=== PATIENT | female | born 1995 | race Caucasian/White ===

== ENCOUNTER 2023-04-03 21:56 | Emergency (ER) | payer BC ==
[~2023-04-03] VITALS: Ht 170.2 cm; Wt 68.0 kg
[2023-04-03 22:23] LABS: BILIRUBIN,URINE NEGATIVE (NEGATIVE); CLARITY,URINE CLEAR; COLOR,URINE YELLOW; GLUCOSE, URINE (UA) NEGATIVE (NEGATIVE); KETONES,URINE NEGATIVE (NEGATIVE); LEUKOCYTE ESTERASE ,URINE NEGATIVE (NEGATIVE); NITRITE,URINE NEGATIVE (NEGATIVE); PROTEIN,URINE NEGATIVE (NEGATIVE)
[2023-04-03 22:44] LABS: BASOPHILS % (AUTO) 0 % (0-10); EOSINOPHILS # (AUTO) 0.1 10^3/uL (0.0-0.3); EOSINOPHILS % (AUTO) 2 % (0-10); HEMATOCRIT 40 % (35-52); HEMOGLOBIN 13.8 g/dL (11.5-16.0); LYMPHOCYTES # (AUTO) 2.9 10^3/uL (1.0-4.0); LYMPHOCYTES % (AUTO) 38 % (12-44); MEAN CORPUSCULAR HEMOGLOBIN 30 pg (25-34); MEAN CORPUSCULAR HGB CONC 35 g/dL (32-36); MEAN CORPUSCULAR VOLUME 88 fL (80-99); MEAN PLATELET VOLUME 9.9 fL (9.0-12.2); MONOCYTES # (AUTO) 0.6 10^3/uL (0.0-1.0); MONOCYTES % (AUTO) 7 % (0-12); NEUTROPHILS % (AUTO) 53 % (42-75); PLATELET COUNT 312 10^3/uL (130-400); WHITE BLOOD COUNT 7.6 10^3/uL (4.3-11.0)
[2023-04-03 22:52] LABS: AMORPHOUS SEDIMENT,UR FEW AMOR URATES /LPF; BACTERIA,URINE MODERATE /HPF; RBC,URINE RARE /HPF; WBC,URINE RARE /HPF
--- NOTE | 2023-04-04 00:43 | ED GU-Female ---
General Chief Complaint: OB < 20 WEEKS Stated Complaint: 5-6 WKS - BLEEDING/CRAMPING Nursing Triage Note: PT AMB TO ED BY POV WITH C/O VAGINAL BLEEDING. PT REPORTS SHE IS 5-6 WKS AND BEGAN HAVING ABD CRAMPING AND VAGINAL BLEEDING AROUND 1945 THIS EVENING. DENIES CRAMPING AT THIS TIME. Source: patient Exam Limitations: no limitations History of Present Illness Date Seen by Provider: Apr 03, 2023 Time Seen by Provider: 22:07 Allergies and Home Medications Allergies Coded Allergies: No Known Drug Allergies (Unverified , 04/03/23) Past Crajfce-Cujzhc-Xokjtc Hx Patient Social History Tobacco Use?: No Use of E-Cig and/or Vaping dev: No Substance use?: No Alcohol Use?: No Pt feels they are or have been: No Immunizations Up To Date Influenza Vaccine Up-to-Date: Yes; Up-to-Date First/Initial COVID19 Vaccinat: N/A Past Medical History Surgery/Hospitalization HX: C SECT X2 Last Menstrual Period: February 16, 2023 Physical Exam Vital Signs Vital Signs - First Documented 04/03/23 22:04 Temp 35.5 Pulse 66 Resp 16 B/P (MAP) 126/68 (87) Pulse Ox 98 O2 Delivery Room Air Capillary Refill : Less Than 3 Seconds Height, Weight, BMI Height: '" Weight: lbs. oz. kg; 23.00 BMI Method: Progress/Results/Core Measures Suspected Sepsis SIRS Temperature: Pulse: 66 Respiratory Rate: 16 Laboratory Tests 04/03/23 22:30: White Blood Count 7.6 Blood Pressure 126 /68 Mean: 87 Laboratory Tests 04/03/23 22:30: Platelet Count 312 Results/Orders Lab Results Laboratory Tests Test 04/03/23 22:15 04/03/23 22:30 Range/Units Urine Color YELLOW Urine Clarity CLEAR Urine pH 6.0 5-9 Urine Specific [place] <=1.005 1.016-1.022 Urine Protein NEGATIVE NEGATIVE Urine Glucose (UA) NEGATIVE NEGATIVE Urine Ketones NEGATIVE NEGATIVE Urine Nitrite NEGATIVE NEGATIVE Urine Bilirubin NEGATIVE NEGATIVE Urine Urobilinogen 0.2 < = 1.0 MG/DL Urine Leukocyte Esterase NEGATIVE NEGATIVE Urine RBC (Auto) 2+ H NEGATIVE Urine RBC RARE /HPF Urine WBC RARE /HPF Urine Squamous Epithelial Cells 2-5 /HPF Urine Crystals PRESENT H /LPF Urine Amorphous Sediment FEW JOSE DANIEL URATES H /LPF Urine Bacteria MODERATE H /HPF Urine Casts NONE /LPF Urine Mucus NEGATIVE /LPF Urine Culture Indicated YES White Blood Count 7.6 4.3-11.0 10^3/uL Red Blood Count 4.55 3.80-5.11 10^6/uL Hemoglobin 13.8 11.5-16.0 g/dL Hematocrit 40 35-52 % Mean Corpuscular Volume 88 80-99 fL Mean Corpuscular Hemoglobin 30 25-34 pg Mean Corpuscular Hemoglobin Concent 35 32-36 g/dL Red Cell Distribution Width 11.8 10.0-14.5 % Platelet Count 312 130-400 10^3/uL Mean Platelet Volume 9.9 9.0-12.2 fL Immature Granulocyte % (Auto) 0 % Neutrophils (%) (Auto) 53 42-75 % Lymphocytes (%) (Auto) 38 12-44 % Monocytes (%) (Auto) 7 0-12 % Eosinophils (%) (Auto) 2 0-10 % Basophils (%) (Auto) 0 0-10 % Neutrophils # (Auto) 4.0 1.8-7.8 10^3/uL Lymphocytes # (Auto) 2.9 1.0-4.0 10^3/uL Monocytes # (Auto) 0.6 0.0-1.0 10^3/uL Eosinophils # (Auto) 0.1 0.0-0.3 10^3/uL Basophils # (Auto) 0.0 0.0-0.1 10^3/uL Immature Granulocyte # (Auto) 0.0 0.0-0.1 10^3/uL Human Chorionic Gonadotropin, Quant [id number] H <5 MIU/ML My Orders Orders - DESIREE SYED MD Cbc With Automated Diff (04/03/23 22:07) Hcg,Quantitative (04/03/23 22:07) Ua Culture If Indicated (04/03/23 22:07) Abo Rh Type (04/03/23 22:17) Urine Culture (04/03/23 22:15) Vital Signs/I&O 04/03/23 22:04 Temp 35.5 Pulse 66 Resp 16 B/P (MAP) 126/68 (87) Pulse Ox 98 O2 Delivery Room Air Capillary Refill : Less Than 3 Seconds Blood Pressure Mean: 87 Departure Impression Primary Impression: Vaginal bleeding affecting early Additional Impression: Cramping affecting , antepartum Disposition: 01 HOME, SELF-CARE Condition: Stable Departure-Patient Inst. Decision time for Depature: 00:40 Referrals: NO,LOCAL PHYSICIAN (PCP/Family) Primary Care Physician Patient Instructions: Bleeding in Early ED Add. Discharge Instructions: Your hormone levels are appropriate for your gestational age. Follow-up with your gyn physician in 2 monitor progression of your . Continue taking a vitamin daily, drinking plenty of clear liquids, and eating a well-balanced diet. Observe vaginal rest, meaning no intercourse or anything else vaginally until you are cleared by your gyn physician. You may continue activities of daily living but avoid extremely strenuous activities. Return to care if you develop worsening symptoms such as escalating bleeding, escalating pain, fever, or other types of vaginal discharge. Please call your gyn physician to inform her of your visit to the emergency room and to obtain any additional instructions they may have. All discharge instructions reviewed with patient and/or family. Voiced understanding. DESIREE SYED MD Apr 04, 2023 00:43
[2023-04-04 00:48] VITALS: BP 114/76
== END 2023-04-04 00:48 | disposition home or self-care (01) ==
LOC: ER 21:59
DX: O20.9 Hemorrhage in early pregnancy, unspecified (principal); O26.891 Other specified pregnancy related conditions, first trimester; R10.9 Unspecified abdominal pain; Z28.310 Unvaccinated for COVID-19; Z3A.01 Less than 8 weeks gestation of pregnancy
CPT/HCPCS: 36415; 81000; 84702; 85025; 86900; 86901; 87088